=== PATIENT | male | born 1960 | race Caucasian/White ===

== ENCOUNTER → 2021-06-21 | Outpatient (CLI) | payer OTHER | LOC: MRI 06-07 11:45 | PROVIDERS: ATTEND Family Medicine | DX: S66.911D Strain of unspecified muscle, fascia and tendon at wrist and hand level, right hand, subsequent encounter (principal) ==

== ENCOUNTER → 2021-07-14 | Outpatient (CLI) | payer OTHER | LOC: RAD 11:12 | PROVIDERS: ATTEND Student in an Organized Health Care Education/Training Program | DX: M19.022 Primary osteoarthritis, left elbow (principal); M19.021 Primary osteoarthritis, right elbow; M17.0 Bilateral primary osteoarthritis of knee; M1A.9XX1 Chronic gout, unspecified, with tophus (tophi); M1A.09X0 Idiopathic chronic gout, multiple sites, without tophus (tophi); Z79.899 Other long term (current) drug therapy ==